=== PATIENT | female | born 1990 | race Caucasian/White ===

== ENCOUNTER 2020-02-25 08:55 | Inpatient (IN) | payer MEDICAID, SELFPAY ==
[~2020-02-25] VITALS: Ht 165.1 cm; Wt 66.2 kg
--- NOTE | 2020-02-25 08:55 | NUR ---
Patient BIBA BLS accompanied by [place] [employer], transferred to bed 5. RN evaluating patient at bedside.
[2020-02-25 09:00] VITALS: BP 133/78
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
--- NOTE | 2020-02-25 09:16 | NUR ---
Dr. Leal is evaluating the patient at bedside.
[2020-02-25] MEDS ORDERED: IBUPROFEN 800 MG TAB PO ONE (09:20)
[2020-02-25 09:27] LABS: BASOPHILS % (AUTO) 0.5 % (0.0-2.0); EOSINOPHILS # (AUTO) 0.1 K/uL (0-0.4); EOSINOPHILS % (AUTO) 0.7 % (0.0-4.0); HEMATOCRIT 31.7 % (36-48); LYMPHOCYTES # (AUTO) 1.3 K/uL (2.5-16.5); LYMPHOCYTES % (AUTO) 15.7 % (20.5-51.1); MEAN CORPUSCULAR HEMOGLOBIN 26 pg (27-31); MEAN CORPUSCULAR HGB CONC 32 g/dL (33-37); MEAN CORPUSCULAR VOLUME 82.3 fL (80-94); MONOCYTES # (AUTO) 0.6 K/uL (0.8-1.0); MONOCYTES % (AUTO) 7.6 % (1.7-9.3); NEUTROPHILS # (AUTO) 6.3 K/uL (1.8-7.7); NEUTROPHILS % (AUTO) 75.5 % (42.2-75.2); PLATELET COUNT (AUTO) 314 K/uL (140-450); RED BLOOD CELL COUNT(AUTO) 3.85 MIL/uL (4.20-5.40); RED CELL DISTRIBUTION WIDTH 18.5 % (11.6-13.7); WHITE BLOOD COUNT (AUTO) 8.3 K/uL (4.8-10.8)
--- NOTE | 2020-02-25 09:45 | NUR ---
Patient returned from XRAY. RN re-evaluating the patient at bedside.
--- NOTE | 2020-02-25 09:48 | NUR ---
BREAKFAST TRAY ORDERED
--- NOTE | 2020-02-25 09:49 | NUR ---
PT HAS BEEN BACK FROM [facility] VIA WHEELCHAIR.
[2020-02-25 09:56] LABS: BARBITURATE, URINE NEGATIVE ng/ml (NEG <=200); BENZODIAZEPINE, URINE NEGATIVE ng/mL (NEG <=200); CANNABINOID, URINE POSITIVE ng/mL (NEG <=50); COCAINE, URINE POSITIVE ng/mL (NEG <=300); OPIATE, URINE NEGATIVE ng/mL (NEG <=2000); PHENCYCLIDINE SCREEN,URINE NEGATIVE ng/mL (NEG <=25)
--- NOTE | 2020-02-25 10:11 | NUR ---
PT IS EATING IN THE BED.
[2020-02-25] MEDS ORDERED: CLINDAMYCIN 150 MG CAP PO ONE (10:20)
[2020-02-25 11:09] LABS: CHLORIDE 107 mmol/L (98-107); GLUCOSE 73 mg/dL (74-106); SODIUM SERUM 143 mmol/L (136-145)
[2020-02-25 11:10] LABS: ALBUMIN 3.5 g/dL (3.4-5.0); ASPARTATE AMINOTRANSFERASE 24 U/L (15-37); CREATININE 1.1 mg/dL (0.6-1.3); GFR ARICAN-AMERICAN 76 mL/min (>90); SALICYLATE < 2.8 mg/dL (2.8-20.0); TOTAL BILIRUBIN 0.2 mg/dL (0.0-1.0); UREA NITROGEN, BLOOD 21 mg/dL (7-18)
[2020-02-25 11:11] LABS: ACETAMINOPHEN < 0.5 ug/ml (10-30)
--- NOTE | 2020-02-25 12:00 | NUR ---
PT IS SLEEPING IN THE BED.
--- NOTE | 2020-02-25 14:17 | NUR ---
PT IS SLEEPING IN THE BED.
--- NOTE | 2020-02-25 16:00 | NUR ---
AT THIS TIME THERE ARE NO NEW UPDATES FOR BED PLACEMENT, WILL CONT TO MONITOR AND ASSIST IN PLACEMENT
--- NOTE | 2020-02-25 16:15 | NUR ---
PTS PACKET WAS FAXED TO THE FOLLOWING FOR REVIEW; [facility]----NO BEDS [facility]-----NO BED [facility]---NO BEDS= [facility]---NO BED [facility]---NO BEDS WILL CONT TO MONITOR
[2020-02-25] MEDS ORDERED: HYDROcodone/APAP 7.5/325 MG 1 TAB PO PRN (16:45)
[2020-02-25] MEDS ORDERED: ACETAMINOPHEN 325 MG TAB PO PRN (16:45)
[2020-02-25] MEDS ORDERED: ONDANSETRON 4 MG/2 ML VIAL IM/IVP PRN (16:45)
[2020-02-25] MEDS ORDERED: DOCUSATE SODIUM 100 MG GELCAP PO PRN (16:45)
[2020-02-25 17:25] VITALS: BP 123/76
--- NOTE | 2020-02-25 17:25 | NUR ---
Patient will be admitted to care of 5150, suicidal ideation, nasal fx. Admited to Med/Surg. Will go to room 110B. Belongings list completed. Report to MARITA Singletary.
--- NOTE | 2020-02-25 17:25 | NUR ---
PT ARRIVED TO UNIT VIA WHEELCHAIR. AOX3- CONFUSED. PT IS UPSET BUT COOPERATIVE. ON ROOM AIR WITH A RIGHT AC #20G/SL. VITAL SIGNS TAKEN, 123/76, HR 87, 99%, 98.0F. OPEN WOUNDS ON FACE/FOREHEAD/BRIDGE OF NOSE/BACK OF HEAD/SIDE OSEGUERA- PICTURES TAKEN AND IN CHART. MRSA NARES COLLECTED. DISCUSSED PLAN OF CARE AND PT VERBALIZED UNDERSTANDING. CALL LIGHT WITHIN REACH. NO S.S OF RESPIRATORY DISTRESS OR DISCOMFORT NOTED AT THIS TIME. WILL CONTINUE TO MONITOR.
[2020-02-25 17:50] LABS: CHOL/HDL RATIO 2.8 (1-4.5); FREE T4 (FREE THYROXINE) 0.89 ng/dL (0.76-1.46); MAGNESIUM 1.8 mg/dL (1.8-2.4); THYROID STIMULATING HORMONE 0.86 uIU/mL (0.34-3.74)
[2020-02-25 18:13] LABS: APPEARANCE,URINE SL CLOUDY (CLEAR); BILIRUBIN,URINE NEGATIVE (NEGATIVE); BLOOD, URINE NEGATIVE (NEGATIVE); COLOR,URINE YELLOW (YELLOW); LEUKOCYTE ESTERASE ,URINE NEGATIVE (NEGATIVE); NITRITE, URINE NEGATIVE (NEGATIVE); UGLUCOSE NEGATIVE (NEGATIVE)
[2020-02-25] MEDS ORDERED: MECLIZINE 25 MG TAB PO PRN (18:15)
[2020-02-25 18:19] LABS: PROTHROMBIN TIME 9.9 secs (10.8-13.4)
--- NOTE | 2020-02-25 19:30 | NUR ---
RECEIVED REPORT FORM DANE RN DAYSHIFT NURSE AT BEDSIDE FOR CONTINUITY OF CARE, PT IN STABLE CONDITION.
--- NOTE | 2020-02-25 20:00 | NUR ---
PT IN BED AOX4 WOUNDS OPEN TO AIR NOSE VISIBLY DEVIATED. PT V/S FOLLOWS: T 97.7 P 100 R 18 B/P 118/67 02 93% ON ROOM AIR. CXR DONE AT BEDSIDE.
--- NOTE | 2020-02-25 20:30 | NUR ---
PT DOWN TO GET CT OF HEAD WITHOUT CONTRAST. AND RETURNED TO FLOOR.
--- NOTE | 2020-02-25 22:40 | NUR ---
PT C/O MODERATE PAIN IN NOSE AND HEAD, GIVEN 1 TAB OF NORCO PO/PRN. 1:1 SITTER AT BEDSIDE.
--- NOTE | 2020-02-25 23:00 | NUR ---
DUE TO CHANGE OF ASSIGNMENT REPORT GIVEN TO MASTER WORKERS COMPENSATION EXAMINER AT BEDSIDE FOR CONTINUITY OF CARE, PT IN STABLE CONDITION.
--- NOTE | 2020-02-25 23:10 | NUR ---
RECEIVED PT IN STABLE CONDITION FROM MARITA MILLAN FOR CONTINUITY OF CARE.
[2020-02-26 00:45] VITALS: BP 106/60
--- NOTE | 2020-02-26 02:00 | NUR ---
PT ASLEEP. NO S/S OF ANY DISCOMFORT . SITTER AT BEDSIDE.
--- NOTE | 2020-02-26 04:30 | NUR ---
MADE ROUNDS. PT ASLEEP. NO S/S OF DISCOMFORT NOTED. WILL CONTINUE TO MONITOR.
--- NOTE | 2020-02-26 05:30 | NUR ---
AWAKE. NO C/O ANY PAIN OR DISCOMFORT NOTED.
--- NOTE | 2020-02-26 07:30 | NUR ---
RECEIVED IN BED SLEEPING. NO SOB NOTED. NO C/O PAIN AT THIS TIME. IV TO LAC PATENT AND INTACT. CHEST CLEAR. ABDOMEN SOFT, BOWEL SOUNDS PRESENT. NO EDEMA NOTED. WITH SITTER AT THE BEDSIDE. WILL CONTINUE TO MONITOR PT FOR SUICIDAL IDEATION.
--- NOTE | 2020-02-26 07:30 | NUR ---
ENDORSED TO AM NURSE IN STABLE CONDITION FOR CONTINUITY OF CARE.
[2020-02-26 08:00] VITALS: BP 128/74
--- NOTE | 2020-02-26 08:17 | NUR ---
PATIENT HAS BEEN SCREENED AND CATEGORIZED MODERATE NUTRITION RISK. PATIENT WILL BE SEEN WITHIN 3-5 DAYS OF ADMISSION. 02/28/20 03/01/[address]
--- NOTE | 2020-02-26 13:33 | NUR ---
Spoke with Nataly RN. No bed are available at this time monitoring for possible discharges. Spoke to Nataly that patient will need a Covid Test before placement anywhere. As per several facilities requesting.
--- NOTE | 2020-02-26 14:00 | NUR ---
PT SEEN BY DR. ALLEN WITH NEW ORDERS FOR MEDICATIONS.
[2020-02-26 16:00] VITALS: BP 108/63
--- NOTE | 2020-02-26 16:00 | NUR ---
PT RESTING. NO SOB NOTED. NO COMPLAINTS MADE. ENDORSED TO KY-RN FOR CONTINUITY OF CARE.
--- NOTE | 2020-02-26 16:01 | NUR ---
RECEIVED REPORT FROM MARITA BELCHER AT BEDSIDE FOR CONTINUITY OF CARE. PATIENT RESTING COMFORTABLY IN BED, RESPIRATIONS EVEN AND UNLABORED ON ROOM AIR. 1:1 SITTER AT SIDE. WILL CONTINUE TO MONITOR PATIENT.
--- NOTE | 2020-02-26 18:00 | NUR ---
PATIENT AWAKE, ASKED PATIENT IF IV CAN BE INSERTED. PT IN AGREEMENT FOR IV INSERT AFTER DINNER. PATIENT NOW SITTING UP IN BED EATING DINNER. NO COMPLAINTS AT THIS TIME. 1:1 SITTER AT SIDE, WILL CONTINUE TO MONITOR PATIENT AND ENDORSE TO RADIOLOGY SERVICES MANAGER NURSE.
--- NOTE | 2020-02-26 18:45 | NUR ---
NEW IV INSERTED R FA 22 G. PATENT, INTACT. PATIENT NOW RESTING IN BED, 1:1 SITTER AT BEDSIDE. WILL CONTINUE TO MONITOR PATIENT AND ENDORSE TO PATTERN SETTER NURSE.
--- NOTE | 2020-02-26 19:30 | NUR ---
RECEIVED PT IN STABLE CONDITION FROM AM NURSE. MED SURG PT BUT 5150 FOR SUICIDAL IDEATION. HL ON THE RT FA . SITTER AT BEDSIDE. PLQN OF CARE DISCUSSED AND NEED REINFORCEMENT. BED ON LOW POSITION. SAFETY MEASURES ENFORCED. WILL CONTINUE TO MONITOR.
[2020-02-26] MEDS: traZODone 50 MG TAB PO SCH (20:35)
[2020-02-26] MEDS: risperiDONE 1 MG TAB PO SCH (20:35)
--- NOTE | 2020-02-26 20:35 | NUR ---
ALL NIGHT MEDS GIVEN TO PT. NO C/O ANY DISCOMFORT NOTED.
--- NOTE | 2020-02-26 21:40 | NUR ---
CHRIS FROM [facility] CALLED DUE TO NEED FOR COVID TEST FOR PT REQUIRED . WILL HAVE MD ORDER FOR THE TEST.
--- NOTE | 2020-02-26 22:00 | NUR ---
WAYNE HENRIQUEZ ,MOTHER CALLED AND LEFT HER PHONE NUMBER . SHE SAID SHE IS JUST AROUND THE AREA TO BE ABLE TO TALK TO MD TOMORROW.
--- NOTE | 2020-02-26 23:05 | NUR ---
NASAL SWAB FOR COVID TEST DONE. SPECIMEN SEND TO LAB. WILL FOLLOW UP RESULT.
--- NOTE | 2020-02-27 00:01 | NUR ---
PT IS ASLEEP. NO S/S OF ANY DISCOMFORT NOTED.
[2020-02-27 01:14] VITALS: BP 108/65
--- NOTE | 2020-02-27 02:00 | NUR ---
MADE ROUNDS. PT SLEEPING. NO S/S DISCOMFORT.
--- NOTE | 2020-02-27 04:00 | NUR ---
PT ASLEEP. NO S/S OF ANY DISCOMFORT NOTED. 1;1 SITTER IN ATTENDANCE
[2020-02-27 07:20] LABS: BASOPHILS # (AUTO) 0.1 K/uL (0.00-0.22); BASOPHILS % (AUTO) 1.3 % (0.0-2.0); EOSINOPHILS # (AUTO) 0.1 K/uL (0-0.4); EOSINOPHILS % (AUTO) 1.7 % (0.0-4.0); HEMATOCRIT 36.5 % (36-48); HEMOGLOBIN 11.6 g/dL (12.0-16.0); LYMPHOCYTES # (AUTO) 1.9 K/uL (2.5-16.5); LYMPHOCYTES % (AUTO) 32.6 % (20.5-51.1); MEAN CORPUSCULAR HEMOGLOBIN 26 pg (27-31); MEAN CORPUSCULAR HGB CONC 32 g/dL (33-37); MEAN CORPUSCULAR VOLUME 81.4 fL (80-94); MONOCYTES # (AUTO) 0.6 K/uL (0.8-1.0); MONOCYTES % (AUTO) 10.9 % (1.7-9.3); NEUTROPHILS # (AUTO) 3.2 K/uL (1.8-7.7); NEUTROPHILS % (AUTO) 53.5 % (42.2-75.2); PLATELET COUNT (AUTO) 363 K/uL (140-450); RED BLOOD CELL COUNT(AUTO) 4.48 MIL/uL (4.20-5.40); RED CELL DISTRIBUTION WIDTH 18.4 % (11.6-13.7); WHITE BLOOD COUNT (AUTO) 5.9 K/uL (4.8-10.8)
--- NOTE | 2020-02-27 07:30 | NUR ---
ENDORSED PT IN STABLE CONDITION TO AM NURSE.
[2020-02-27 07:31] LABS: ANION GAP 13.9 (8-16); CREATININE 0.7 mg/dL (0.6-1.3); POTASSIUM 3.9 mmol/L (3.5-5.1)
--- NOTE | 2020-02-27 08:41 | NUR ---
Received call from Guillermo Pate in review Addendum: 02/27/20 at 0844 by Joie Cade CM Charted in error
[2020-02-27 09:15] VITALS: BP 128/73
[2020-02-27 09:21] LABS: T4 (THYROXINE) 5.6 ug/dL (4.5-12.0)
[2020-02-27] MEDS: FLUoxetine 20 MG CAP PO SCH (09:45)
[2020-02-27] MEDS: risperiDONE 1 MG TAB PO SCH ×2 (09:45→20:09)
--- NOTE | 2020-02-27 09:47 | NUR ---
RECEIVED PATIENT REPORT PATIENT IS SLEEPING AND RESTING COMFORTABLY, SHE EASILY WOKE UP WITH VOICE STIMULI, TERA RN AT BEDSIDE FOR WOUND CARE. PATIENT IS PLEASANT AND FOLLOWS COMMANDS. SHE IS AAO, NO S/S OF ACUTE DISTRESS, VSS, IV ACCESS ON THE RIGHT FOREARM INTACT WITH KERLIX GAUZE WRAPPED AROUND ARM. NOTED HEALING ABRASIONS ON THE FACE AND BACK OF HEAD. MEDICATIONS WERE GIVEN AND PATIENT WAS ABLE TO SWALLOW WITHOUT DIFFICULTY. PATIENT RESTING COMFORTABLY IN BED, BED IS LOWERED AND HAS 1:1 SITTER.
--- NOTE | 2020-02-27 10:00 | NUR ---
WOUND ASSESSMENT DONE TO THIS 29 Y/O FEMALE WITH MULTIPLE DRY ABRASIONS TO SCALP/FOREHEAD AND FACE, NO OPEN ACTIVE WOUND , NO ERYTHEMA, NO S/S OF INFECTION. PT. AAX4, AMBULATE TO BR, POC DISCUSSED,PT. VERBALIZING UNDERSTANDING.
--- NOTE | 2020-02-27 11:28 | NUR ---
SPOKE WITH JOANNE AT [facility] AT [phone] AND SHE STATED THEY ARE AWARE OF PATIENT IN NEED OF A INPATIENT PSYCH FACILITY.
--- NOTE | 2020-02-27 12:21 | NUR ---
PATIENT SPEAKING WITH MOTHER ON THE PHONE, SHE IS AMB IN THE ROOM WITHOUT ASSIST. NO NEEDS AT THIS TIME.
--- NOTE | 2020-02-27 12:25 | NUR ---
PART TIME NOTE: Patient's Orientation Person Situation Place Time Information Provided By PATIENT Aerobics Teacher, Realtionship and Phone Number WAYNE HENRIQUEZ MOTHER [phone] Healthcare Power of Sales Account Associate No Does Patient Have a POLST No Identifying Problems Mental Health Homelessness/Housing Substance Abuse Is A Social Work Consult Needed No Mandate Report Filed No Explanation Of Identifying Problems PATIENT IS A 29-YEAR-OLD FEMALE ADMITTED FOR SUICIDAL IDEATION. PATIENT REPORTS NO PMHX. PATIENT REPORTED BEING HOMELESS AND STAYING IN [facility]. SW OFFERED HOMELESS RESOURCES BUT PATIENT DENIED. PATIENT REPORTED NO SI/HI OR AH/VH. PATIENT DENIED MENTAL HEALTH HISTORY AND REPORTED DAILY METHAMPHETAMINE USE. PATIENT REFUSED SUBSTANCE ABUSE AND MENTAL HEALTH RESOURCES. Admitted From HOMELESS Pre-Admission Level Of Functioning Status Independent/Ambulatory Prior Resources/Services Used In Last 12 Months No Prior Resources Used Prior DME No Prior DME Used Living Situation Homeless Other Living Situation/Comment PATIENT STATED SHE WILL CALL MOTHER WITH CONSULTING GROUP ANALYST TONE TO RETRIEVE ADDRESS SHE WILL BE DISCHARGED TO, PENDING PSYCHIATRIC CONSULT. CONSULTING GROUP ANALYST STATED HE WOULD PROVIDE SW WITH DISCHARGE ADDRESS. Factors/Needs Psych Placement/Referral Pt/Rep Participated In Discharge Plan Yes Discharge Plan Comments TENTATIVE DISCHARGE PLAN IS FOR PATIENT TO GO TO PATIENT'S MOTHER'S HOME PENDING PSYCHIATRIC CONSULT. DC Plan Status Initiated Addendum: 02/27/20 at 1429 by Odin Estrada WAS CONTACTED BY PATIENT'S SISTER RACHEL JACKMAN REGARDING INFORMATION CONSERVATORSHIP. PROVIDED CONTACT INFORMATION FOR DEPARTMENT OF [facility] [phone].
--- NOTE | 2020-02-27 12:30 | NUR ---
PATIENT SPEAKING WITH MOTHER OKAYED FOR RN TO SPEAK TO HER MOTHER, SISTER RACHEL, AND BROTHER BOGDAN, REGARDING HER CARE. PATIENT INSIST ON GOING HOME TO HER MOTHERS. PATIENT IS AWARE DR ALLEN WILL BE ON THE UNIT LATER TODAY.
--- NOTE | 2020-02-27 12:58 | NUR ---
[facility] s/w Nataly no beds [facility] no answer. Left message [facility], packet faxed [facility] s/w Casandra packet faxed for review
[2020-02-27] MEDS: GAUZE TP SCH (13:00)
--- NOTE | 2020-02-27 14:00 | NUR ---
PATIENT RESTING COMFORTABLY IN BED, THE BED IS LOWERED AND LOCKED.
--- NOTE | 2020-02-27 16:00 | NUR ---
PATIENT RESTING COMFORTABLY IN BED WITH NO NEEDS. BED IS LOCKED AND LOWERED.
[2020-02-27 17:32] VITALS: BP 109/68
--- NOTE | 2020-02-27 18:00 | NUR ---
PATIENT REQUESTED TO HAVE HER PHONE. CALLED SECURITY FOR PHONE.
--- NOTE | 2020-02-27 19:20 | NUR ---
RECEIVED BEDSIDE SHIFT REPORT FROM DAYSHIFT NURSE FOR CONTINUITY OF CARE. PATIENT AWAKE AND ALERT TALKING ON HER CELL PHONE. NO SIGNS OF DISTRESS NOTED. IV PATENT. SAFETY MEASURES IN PLACE AND SITTER AT BEDSIDE
[2020-02-27] MEDS: traZODone 50 MG TAB PO SCH (20:09)
--- NOTE | 2020-02-27 20:09 | NUR ---
ADMINISTERED 2100 MEDICATIONS TO PATIENT. PATIENT TOLERATED WELL NO SIGNS OF DISTRESS NOTED. RESPIRATIONS EVEN AND UNLABORED ON RA. SAFETY MEASURES IN PLACE AND SITTER AT BEDSIDE.
--- NOTE | 2020-02-27 22:30 | NUR ---
ROUNDING PATIENT RESTING. NO SIGNS OF DISTRESS NOTED. SITTER AT BEDSIDE
[2020-02-28] VITALS: BP 100/60
--- NOTE | 2020-02-28 00:32 | NUR ---
ROUNDING NO SIGNS OF DISTRESS NOTED. RESPIRATIONS EVEN AND UNLABORED. SAFETY MEASURES REMAIN IN PLACE AND SITTER AT BEDSIDE
--- NOTE | 2020-02-28 01:50 | NUR ---
PROVIDING BREAK COVERAGE FOR SITTER. PATIENT IS RESTING COMFORTABLY IN BED NO SIGNS OF DISTRESS NOTED. RESPIRATIONS EVEN AND UNLABORED. WILL CONTINUE TO MONITOR
--- NOTE | 2020-02-28 04:42 | NUR ---
ROUNDING. OBTAINED WEIGHT. PATIENT RESTING COMFORTABLY IN BED NO SIGNS OF DISTRESS NOTED. RESPIRATIONS EVEN AND UNLABORED ON RA. SAFETY MEASURES IN PLACE AND SITTER REMAINS AT BEDSIDE
--- NOTE | 2020-02-28 07:20 | NUR ---
ENDORSED PATIENT TO DAYSHIFT NURSE AT BEDSIDE FOR CONTINUITY OF CARE. PATIENT IN STABLE CONDITION. SITTER REMAINS AT BEDSIDE
--- NOTE | 2020-02-28 07:22 | NUR ---
RECEIVED PATIENT FROM NIGHT NURSE. PATIENT IS AWAKE AND ALERT. RESP EVEN AND UNLABORED ON ROOM AIR. RFA 22 SL NOTED. NO NOTED DISTRESS AT THIS TIME. BED IN LOW POSITION. SITTER BY BEDSIDE. PLAN OF CARE DISCUSSED WITH PATIENT, PATIENT VERBALIZED UNDERSTANDING. WILL CONTINUE TO MONITOR.
[2020-02-28 07:28] LABS: BASOPHILS # (AUTO) 0.1 K/uL (0.00-0.22); EOSINOPHILS # (AUTO) 0.1 K/uL (0-0.4); EOSINOPHILS % (AUTO) 1.2 % (0.0-4.0); HEMATOCRIT 36.3 % (36-48); HEMOGLOBIN 11.6 g/dL (12.0-16.0); LYMPHOCYTES # (AUTO) 2.6 K/uL (2.5-16.5); LYMPHOCYTES % (AUTO) 34.7 % (20.5-51.1); MEAN CORPUSCULAR HEMOGLOBIN 26 pg (27-31); MEAN CORPUSCULAR HGB CONC 32 g/dL (33-37); MEAN CORPUSCULAR VOLUME 81.7 fL (80-94); MONOCYTES # (AUTO) 0.7 K/uL (0.8-1.0); MONOCYTES % (AUTO) 9.6 % (1.7-9.3); NEUTROPHILS % (AUTO) 53.5 % (42.2-75.2); PLATELET COUNT (AUTO) 352 K/uL (140-450); RED BLOOD CELL COUNT(AUTO) 4.44 MIL/uL (4.20-5.40); RED CELL DISTRIBUTION WIDTH 18.4 % (11.6-13.7); WHITE BLOOD COUNT (AUTO) 7.4 K/uL (4.8-10.8)
[2020-02-28 07:29] LABS: ANION GAP 11.6 (8-16); CARBON DIOXIDE 27.5 mmol/L (21-32); CREATININE 0.8 mg/dL (0.6-1.3); POTASSIUM 4.1 mmol/L (3.5-5.1)
[2020-02-28 08:00] VITALS: BP 103/57
[2020-02-28] MEDS: risperiDONE 1 MG TAB PO SCH (08:27)
[2020-02-28] MEDS: FLUoxetine 20 MG CAP PO SCH (08:27)
--- NOTE | 2020-02-28 08:31 | NUR ---
MORNING ROUTINE MEDICATIONS GIVEN. PATIENT TOLERATED WELL. RESTING IN BED. NO NOTED DISTRESS AT THIS TIME. ENCOURAGED TO SEEK STAFF WITH ASSIST NEEDED. SITTER BY BEDSIDE. WILL CONTINUE TO MONITOR.
--- NOTE | 2020-02-28 09:28 | NUR ---
PATIENT HAS BEEN SCREENED AND CATEGORIZED MODERATE NUTRITION RISK. PATIENT WILL BE SEEN WITHIN 3-5 DAYS OF ADMISSION. 03/01/20 03/03/[address] Addendum: 02/28/20 at [address] DISREGARD, WRONG PATIENT
--- NOTE | 2020-02-28 10:15 | NUR ---
MORNING VITALS 98.1 112 16 103/[address] PATRICK MADE AWARE OF HIGH HR. NO NEW ORDERS RECEIVED. PATIENT IS SLEEPING AND NO NOTED DISTRESS. ARROUSABLE AND RESPONSIVE TO STAFF. DENIES OF PAIN AT THIS TIME.
--- NOTE | 2020-02-28 12:41 | NUR ---
Referral has been forwarded to [facility] and [facility] for review.
[2020-02-28] MEDS: GAUZE TP SCH (13:15)
--- NOTE | 2020-02-28 13:18 | NUR ---
WOUND TREATMENT PROVIDED, BETADINE APPLIED AND LEAVE EDIN. AREAS ARE HEALED AND CLOSED.
--- NOTE | 2020-02-28 14:40 | NUR ---
SPOKE TO RASHAWN AT [facility]. PATIENT WILL BE ADMITTED TO [facility] IN [place]. ADDRESS [id number] [address] [facility] [facility], [facility] [id number] [phone]. [facility] UNDER [facility]EPT[facility] DR. BALTAZAR. PATIENT IS MADE AWARE. PATIENT VERBALIZED UNDERSTANDING. DR. PATRICK MADE AWARE.
--- NOTE | 2020-02-28 14:48 | NUR ---
SPOKE TO RASHAWN CORE MACHINE TENDER AT [facility]. AN OPEN BED IS AVAILABLE FOR PATIENT. RASHAWN REQUESTED THE COVID 19 TEST RESULT TO BE FAXED.
--- NOTE | 2020-02-28 15:00 | NUR ---
RECEIVED REPORT THAT PATIENT HAS BEEN ACCEPTED AT [facility] UNIT [address] BALTAZAR. WILL SET UP TRANSPORTATION WITH [facility] Addendum: 02/28/20 at 1506 by Lorraine Espinoza CM AD[address]ESS [id number] [place], [place] [address]. [place], [place] [address] Addendum: 02/28/20 at 1514 by Lorraine Espinoza CM [facility] TELEPHONE # [phone]. Addendum: 02/28/20 at 1518 by Lorraine Espinoza CM SET UP TRANSPORTATION WITH [facility] FOR 4:30. NOTIFIED MARITA COVARRUBIAS.
[2020-02-28] MEDS ORDERED: FLUO20CA33 PO (15:43)
[2020-02-28] MEDS ORDERED: RIS1 PO (15:43)
[2020-02-28] MEDS ORDERED: TRAZ-466 PO (15:43)
[2020-02-28 15:52] VITALS: BP 94/65
[2020-02-28 16:00] VITALS: BP 94/65
--- NOTE | 2020-02-28 16:00 | NUR ---
REPORT GIVEN TO MARITA HARRELL AT [facility] IN [place]. [facility] ETA AT 1630. PATIENT IS MADE AWARE. PATIENT VERBALIZED UNDERSTANDING.
--- NOTE | 2020-02-28 16:55 | NUR ---
DISCHARGE ORDER RECEIVED FROM DR. PATRICK. PATIENT LEFT WITH [facility] IN STABLE CONDITION.
== END 2020-02-28 16:55 | DRG 812 ==
LOC: EDBD 08:55 → MED 08:55 → EEVIPCON 16:41 → MTU 16:41
PROVIDERS: ADMIT General Practice; ATTEND General Practice
DX: T43.621A Poisoning by amphetamines, accidental (unintentional), initial encounter (principal); G92 Toxic encephalopathy; R45.851 Suicidal ideations; F20.9 Schizophrenia, unspecified; F19.90 Other psychoactive substance use, unspecified, uncomplicated; F31.9 Bipolar disorder, unspecified; Z20.828 Contact with and (suspected) exposure to other viral communicable diseases; D64.9 Anemia, unspecified; E86.0 Dehydration; Y92.89 Other specified places as the place of occurrence of the external cause
CPT/HCPCS: 36415; 70160; 70450; 71045; 80048; 80053; 80305; 81003; 81025; 82140; 82150; 83036; 83690; 83735; 83880; 84100; 84436; 84439; 84443; 84479; 84484; 85025; 85610; 85730; 87081; 93005; 99285; G0480; G0482; Q0092; U0003-CS